=== PATIENT | male | born 1980 | race Caucasian/White ===

== ENCOUNTER 2017-08-21 23:23 | Emergency (ER) | payer OTHER ==
[~2017-08-21] VITALS: Ht 195.6 cm; Wt 108.0 kg
[2017-08-21 23:40] VITALS: BP 146/91
[2017-08-22 00:17] LABS: BASOPHILS % (AUTO) 0.5 % (0.0-2.0); EOSINOPHILS % (AUTO) 0.4 % (0.0-6.0); HEMATOCRIT 43 % (39-51); HEMOGLOBIN 15.2 g/dL (13.5-17.5); LYMPHOCYTES # (AUTO) 1.6 /CMM (0.8-4.8); LYMPHOCYTES % (AUTO) 18.4 % (20.0-44.0); MEAN CORPUSCULAR HEMOGLOBIN 36 PG (26.0-33.0); MEAN CORPUSCULAR HGB CONC 36 g/dl (31.0-36.0); MEAN CORPUSCULAR VOLUME 100 fL (80-96); MONOCYTES # (AUTO) 0.8 /CMM (0.1-1.30); MONOCYTES % (AUTO) 8.9 % (2.0-12.0); NEUTROPHILS # (AUTO) 6.1 /CMM (1.8-8.9); NEUTROPHILS % (AUTO) 71.8 % (43.0-81.0); PLATELET COUNT (AUTO) 184 /CMM (150-450); RDW COEFFICIENT OF VARIATION 13.6 (11.5-15.0); RED BLOOD CELL COUNT(AUTO) 4.28 MIL/uL (4.5-6.0); WHITE BLOOD COUNT (AUTO) 8.5 K/uL (4.3-11.0)
[2017-08-22 00:49] LABS: CALCIUM, SERUM 8.9 mg/dL (8.5-10.1); CREATININE 1.1 mg/dL (0.6-1.3); POTASSIUM 3.6 mmol/L (3.5-5.1)
[2017-08-22 00:56] LABS: ALBUMIN 3.9 g/dL (3.4-5.0); BILIRUBIN,TOTAL 0.5 mg/dL (0.2-1.0); TOTAL PROTEIN, SERUM 7.9 g/dL (6.4-8.2)
[2017-08-22] MEDS ORDERED: CHLORDIAZEPOXIDE HCL 25 MG CAPSULE ONE (01:58)
[2017-08-22] MEDS ORDERED: CHLORDIAZEPOXIDE HCL 25 MG CAPSULE PO ONE (02:00)
[2017-08-22 02:35] LABS: HEMOGLOBIN 15.2 g/dL (13.5-17.5)
[2017-08-22] MEDS ORDERED: PANTOPRAZOLE 40 MG TABLET.DR PO ONE ×2 (03:24→03:30)
== END 2017-08-22 03:29 | disposition home or self-care (01) ==
LOC: ER 23:23
DX: K62.5 Hemorrhage of anus and rectum (principal); F10.239 Alcohol dependence with withdrawal, unspecified; R00.0 Tachycardia, unspecified
CPT/HCPCS: 36415; 80053; 85025; 85027; 99284; A4606; Z7610

== ENCOUNTER 2019-10-28 13:02 | Emergency (ER) | payer OTHER ==
[~2019-10-28] VITALS: Ht 193 cm; Wt 98.9 kg
--- NOTE | 2019-10-28 13:05 | NUR ---
PT BIB [facility] WITH A C/O N/V AND TREMORS. PT IS AN ALCOHOLIC AND HAD HIS LAST DRINK AT 0400. PT AMBULATED INTO THE ER FROM [facility] AND THEN AMBULATED WITH A STEADY GAIT INTO ER 1.
[2019-10-28 13:54] LABS: BASOPHILS # (AUTO) 0.1 /CMM (0.0-0.2); EOSINOPHILS % (AUTO) 0.1 % (0.0-6.0); HEMATOCRIT 51 % (39-51); HEMOGLOBIN 17.7 g/dL (13.5-17.5); LYMPHOCYTES # (AUTO) 1.4 /CMM (0.8-4.8); LYMPHOCYTES % (AUTO) 19.5 % (20.0-44.0); MEAN CORPUSCULAR HGB CONC 35 g/dl (31.0-36.0); MEAN CORPUSCULAR VOLUME 98 fL (80-96); MONOCYTES # (AUTO) 0.4 /CMM (0.1-1.30); NEUTROPHILS # (AUTO) 5.4 /CMM (1.8-8.9); NEUTROPHILS % (AUTO) 73.4 % (43.0-81.0); PLATELET COUNT (AUTO) 153 /CMM (150-450); RED BLOOD CELL COUNT(AUTO) 5.22 MIL/uL (4.5-6.0); WHITE BLOOD COUNT (AUTO) 7.4 K/uL (4.3-11.0)
[2019-10-28] MEDS ORDERED: IV NS 0.9% 1,000 ML BAG IV ONE (14:00)
[2019-10-28 14:02] LABS: CALCIUM, SERUM 8.6 mg/dL (8.5-10.1); CARBON DIOXIDE 23 mmol/L (21-32); CHLORIDE 99 mmol/L (98-107); CREATININE 1.4 mg/dL (0.6-1.3); GLUCOSE 124 mg/dL (74-106); SODIUM SERUM 143 mmol/L (136-145); UREA NITROGEN, BLOOD 10 mg/dL (7-18)
[2019-10-28 14:10] LABS: ACETAMINOPHEN < 2 ug/ml (10-30); ALANINE AMINOTRANSFERASE 83 U/L (12-78); ALBUMIN 4.7 g/dL (3.4-5.0); ALCOHOL, BLOOD 396 mg/dL (0-0); ALKALINE PHOSPHATASE 70 U/L (46-116); ASPARTATE AMINOTRANSFERASE 87 U/L (15-37); BILIRUBIN,DIRECT 0.1 mg/dL (0.0-0.2); BILIRUBIN,TOTAL 0.5 mg/dL (0.2-1.0); SALICYLATE 1.4 mg/dL (2.8-20.0); TOTAL PROTEIN, SERUM 9.1 g/dL (6.4-8.2)
[2019-10-28] MEDS ORDERED: ONDANSETRON HCL/PF 4 MG/2 ML VIAL ONE (14:54)
[2019-10-28] MEDS ORDERED: ONDANSETRON HCL/PF 4 MG/2 ML VIAL IVP ONE (15:00)
[2019-10-28] MEDS ORDERED: ONDANSETRON 4 MG TAB.RAPDIS SL ONE (15:00)
[2019-10-28] MEDS ORDERED: ONDANSETRON 4 MG TAB.RAPDIS ONE (15:00)
--- NOTE | 2019-10-28 15:14 | NUR ---
IV removed. Catheter intact and site benign. Pressure and 4x4 applied to site. No bleeding noted. Patient discharged to home in stable condition. Written and verbal after care instructions given. Patient verbalizes understanding of instruction AND RX. PT AMBULATED OUT WITH A STEADY GAIT. PT TO FU WITH OUTPATIENT DETOX. [facility] RECOMMENDED.
[2019-10-28 15:15] VITALS: BP 137/89
== END 2019-10-28 15:16 | disposition home or self-care (01) ==
LOC: ER 13:12
DX: F10.129 Alcohol abuse with intoxication, unspecified (principal); R11.2 Nausea with vomiting, unspecified; R94.31 Abnormal electrocardiogram [ECG] [EKG]; Z60.2 Problems related to living alone; Y90.8 Blood alcohol level of 240 mg/100 ml or more
CPT/HCPCS: 36415; 80048; 80076; 80307; 80329; 85025; 93005 ×2; 96361; 96374; 99284; G0480; J2405; J7030; Q0162

== ENCOUNTER 2020-07-17 00:53 | Emergency (ER) | payer OTHER ==
[~2020-07-17] VITALS: Ht 195.6 cm; Wt 93.9 kg
[2020-07-17] MEDS ORDERED: LORAZEPAM INJ 2 MG/ML VIAL IVP ONE (01:00)
[2020-07-17] MEDS ORDERED: THIAMINE HCL 100 MG TABLET PO ONE (01:00)
[2020-07-17] MEDS ORDERED: FOLIC ACID 1 MG TABLET PO ONE (01:00)
[2020-07-17] MEDS ORDERED: IV D5/ 0.9% NACL 1,000 ML IV ONE (01:00)
--- NOTE | 2020-07-17 01:05 | NUR ---
PATIENT CAME TO THE ER BED 9 BIBRA FROM HOME C/O ALCOHOL WITHDRAWAL. PATIENT STATES THAT HIS LAST DRINK IS A WEEK AGO. PATIENT STATES THAT HE TAKES LIBRIUM FOR HIS PREVENTION OF SEIZURES. PATIENT IS AAOX4. NO SOB. BREATHING EVENLY AND UNLABORED ON ROOM AIR. CONNECTED TO THE IMPLEMENTATION PROJECT MANAGER.
[2020-07-17] MEDS ORDERED: THIAMINE HCL 100 MG TABLET ONE (01:09)
[2020-07-17] MEDS ORDERED: FOLIC ACID 1 MG TABLET ONE (01:09)
[2020-07-17] MEDS ORDERED: LORAZEPAM INJ 2 MG/ML VIAL ONE ×2 (01:09→03:40)
--- NOTE | 2020-07-17 01:18 | NUR ---
BLOOD COLLECTED AND SENT TO THE LAB.
[2020-07-17 01:28] LABS: BASOPHILS # (AUTO) 0.1 /CMM (0.0-0.2); BASOPHILS % (AUTO) 0.9 % (0.0-2.0); HEMATOCRIT 40 % (39-51); LYMPHOCYTES # (AUTO) 0.4 /CMM (0.8-4.8); LYMPHOCYTES % (AUTO) 6.2 % (20.0-44.0); MEAN CORPUSCULAR HGB CONC 35 g/dl (31.0-36.0); MEAN CORPUSCULAR VOLUME 102 fL (80-96); MONOCYTES # (AUTO) 0.4 /CMM (0.1-1.30); MONOCYTES % (AUTO) 6.3 % (2.0-12.0); NEUTROPHILS # (AUTO) 5.3 /CMM (1.8-8.9); NEUTROPHILS % (AUTO) 86.6 % (43.0-81.0); PLATELET COUNT (AUTO) 92 /CMM (150-450); RED BLOOD CELL COUNT(AUTO) 3.91 MIL/uL (4.5-6.0); WHITE BLOOD COUNT (AUTO) 6.1 K/uL (4.3-11.0)
[2020-07-17] MEDS ORDERED: ONDANSETRON HCL/PF 4 MG/2 ML VIAL ONE ×2 (01:34→04:48)
[2020-07-17] MEDS ORDERED: CHLO25CA22 PO (01:36)
[2020-07-17] MEDS ORDERED: ONDANSETRON HCL/PF - ER 4 MG/2 ML VIAL IV ONE ×2 (02:00→05:00)
[2020-07-17 02:30] LABS: ALANINE AMINOTRANSFERASE 93 U/L (12-78); ALBUMIN 4.3 g/dL (3.4-5.0); ALCOHOL, BLOOD 13 mg/dL (0-0); ALKALINE PHOSPHATASE 92 U/L (46-116); ASPARTATE AMINOTRANSFERASE 212 U/L (15-37); BILIRUBIN,DIRECT 0.5 mg/dL (0.0-0.2); BILIRUBIN,TOTAL 1.2 mg/dL (0.2-1.0); CALCIUM, SERUM 9.3 mg/dL (8.5-10.1); CARBON DIOXIDE 22 mmol/L (21-32); CHLORIDE 99 mmol/L (98-107); CREATININE 1.3 mg/dL (0.6-1.3); GLUCOSE 121 mg/dL (74-106); POTASSIUM 4.2 mmol/L (3.5-5.1); SODIUM SERUM 143 mmol/L (136-145); TOTAL PROTEIN, SERUM 8.3 g/dL (6.4-8.2); UREA NITROGEN, BLOOD 12 mg/dL (7-18)
[2020-07-17 02:32] LABS: ACETAMINOPHEN < 2 ug/ml (10-30)
--- NOTE | 2020-07-17 03:23 | NUR ---
[place] [facility] called per Dr Salamanca.
--- NOTE | 2020-07-17 03:25 | NUR ---
[facility] doctor speaking to dr. gonzalez regarding plan of care.
[2020-07-17] MEDS ORDERED: LORAZEPAM INJ 2 MG/ML VIAL IV ONE (04:00)
--- NOTE | 2020-07-17 04:14 | NUR ---
Pt accepted to [facility] ER by Dr Cat. # for report [phone]. ETA [id number]
--- NOTE | 2020-07-17 04:25 | NUR ---
REPORT GIVEN BRAYAN MAHER AT [facility] FOR COMFORT.
--- NOTE | 2020-07-17 04:50 | NUR ---
REPORT GIVEN TO [employer] APPRENTICE FOR COMFORT. AND TRANSFER TEAM FOR TRANSFERRING RESPONSIBILITIES.
[2020-07-17 04:51] VITALS: BP 133/76
[2020-07-17 05:08] LABS: LYMPHOCYTES % (MANUAL) 6 % (16-48); METAMYELOCYTES % 1 % (0-0); MONOCYTES % (MANUAL) 1 % (0-11.0); NEUTROPHILS % (MANUAL) 92 (42-76)
[2020-07-17 08:36] LABS: MAGNESIUM 1.1 mg/dL (1.8-2.4)
== END 2020-07-17 04:52 | disposition short-term general hospital (02) ==
LOC: ER 00:56
DX: F10.239 Alcohol dependence with withdrawal, unspecified (principal); R56.9 Unspecified convulsions; Y90.0 Blood alcohol level of less than 20 mg/100 ml; R00.0 Tachycardia, unspecified; R17 Unspecified jaundice; R94.31 Abnormal electrocardiogram [ECG] [EKG]; Z20.822 Contact with and (suspected) exposure to COVID-19; Z79.899 Other long term (current) drug therapy
CPT/HCPCS: 36415; 80048; 80076; 80299; 80320; 82962; 83690; 83735; 85007; 85025; 87426; 93005; 96361; 96374; 96375; 96376; 99285; C9803; J2060 ×2; J2405 ×4; J7042; G0480